=== PATIENT | male | born 1975 | race Caucasian/White ===

== ENCOUNTER 2024-07-23 10:06 | Outpatient (AMB) | payer BC, SELFPAY ==
--- NOTE | 2024-07-23 10:07 | A.OFFPC_ITS ---
Vital Signs 07/23/24 10:18 Height 5 ft 11 in Weight 136 lb BMI 19.0 BP 106/64 Blood Pressure Location Rt brachial Position Sitting Pulse 78 Pulse Source Pulse Oximeter Pulse Oximetry (%) 98 Oxygen Delivery Method Room Air Intake Visit Reasons: New pt PE Intake Note: Pt is here today for New patient visit PE. Allergies No Known Allergies Allergy (Verified 07/23/24 10:19) Medication List - Last Reconciled 07/23/24 by Sommer Acosta MD albuterol sulfate continuous nebulization albuterol sulfate 90 mcg/actuation 2 puffs inhalation Q6H PRN albuterol sulfate 0.63 mg (3 mL) inhalation Q6H Anoro Ellipta 62.5-25 mcg/actuation (umeclidinium-vilanterol) 1 inh inhalation DAILY NS varenicline (Chantix Starting Month Box) PO PER PKG DIR varenicline (Chantix Continuing Month Box) 1 mg PO BID Tobacco use date assessed: 07/23/24 Dental Screening Dental Screen Date: 07/23/24 Did you have a dental visit in the last 12 months?: No Did you have a dental problem in the last 6 months where you did not have access to dental care?: No Was dental information given to patient?: Patient declined HPI New pt PE HPI0 Details Pt presents for [employer] PE. Patient has not seen a primary care doctor for a few years. He used to take albuterol as needed for intermittent coughing and wheezing. Patient smokes 1 pack a day for over 20 years and is planning to quit. 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 1. Little interest or pleasure in doing things: not at all 2. Feeling down, depressed, or hopeless: not at all 3. Trouble falling or staying asleep, or sleeping too much: not at all 4. Feeling tired or having little energy: several days 5. Poor appetite or overeating: not at all 6. Feeling bad about yourself - or that you are a failure or have let yourself or your family down: not at all 7. Trouble concentrating on things, such as reading the newspaper or watching television: not at all 8. Moving or speaking so slowly that other people could have noticed. Or the opposite - being so fidgety or restless that you have been moving around a lot more than usual: not at all 9. Thoughts that you would be better off or of hurting yourself in some way: not at all Total score: 1 Depression Screening Interpretation: Negative Depression Screening Done: Yes 27259 - PHQ-9 Billing: Yes Source: Developed by Drs. Leo Casillas, Ruchi Cornell, Azeem Rojas and colleagues, with an educational anushka from [employer]. Thrive Questionnaire Date Thrive assessed: 07/23/24 I am a: Patient What is your living situation today?: I have a place to live, but I am worried about losing it in the future Within the past 12 months, did the food you bought not last and you didn't have the money to get more?: Never true Within the past 12 months, did you worry whether your food would run out before you got money to buy more?: Never true Do you have trouble paying for medicines?: No Do you have trouble getting transportation to medical appointments?: No Do you have trouble paying your heating and electricity bill?: No Do you have trouble taking care of your child, family member or friend?: No Do you have trouble with day-to-day activities such as bathing, preparing meals, shopping, managing finances, etc.?: No Are you currently unemployed and looking for a job?: No Are you interested in more education?: No THRIVE Score: 1 AUDIT C Alcohol Use Questionnaire (AUDIT-C) 1. How often do you have a drink containing alcohol?: Never 3. How often do you have six or more drinks on one occasion?: Never Total Score: 0 CHLOE-7 AMB Questionnaire CHLOE-7 Date CHLOE - 7 assessed: 07/23/24 Feeling nervous, anxious, or on edge: 1 = Several days Not being able to stop or control worryin = Several days Worrying too much about different things: 1 = Several days Trouble relaxin = Not at all Being so restless that it is hard to sit still: 0 = Not at all Becoming easily annoyed or irritable: 0 = Not at all Feeling afraid as if something awful might happen: 1 = Several days Total CHLOE-7 score (0-4 normal; 5-9 mild; 10-14 moderate; 15-21 severe): 4 Source: Developed by Drs. Leo Casillas, Ruchi Cornell, Azeem Rojas and colleagues, with an educational anushka from [employer]. CHLOE-7 Assessment Billing CHLOE-7 Assessment Tool: CHLOE-7 Assessment 57334 Review of Systems Const All systems reviewed & are unremarkable except as noted in HPI and below Reports no additional complaints Eyes Reports no additional complaints ENT Reports no additional complaints Card Reports no additional complaints Resp Reports no additional complaints GI Reports no additional complaints Reports no additional complaints Physical exam (Primary Care) Vital Signs: Last Vital Signs Pulse 78 07/23/24 10:18 BP 106/64 07/23/24 10:18 Pulse Ox 98 07/23/24 10:18 Oxygen Delivery Method Room Air 07/23/24 10:18 BMI result Body Mass Index 19.0 Tobacco/Smoking Status: Tobacco use Status Tobacco use date assessed 07/23/24 07/23/24 10:24 Patient Tobacco Use Status Current everyday Tobacco 07/23/24 10:24 Tobacco use type Cigarette 07/23/24 10:24 e-Cigarette/Vaping Use Never Used 07/23/24 10:24 PHQ-9: PHQ-9 Score PHQ-9: Total score 1 07/23/24 10:30 Depression Screening Interpretation: Negative Thrive Assessment: Date of Thrive Assessment Date Thrive assessed 07/23/24 07/23/24 10:30 Const General: no acute distress HENMT Head: Yes normal to inspection Face and sinus: Yes normal facial exam Mouth: Normal oral and palatal mucosa present Throat: Yes posterior oropharynx normal Eyes General: appearance normal, both eyes and all related structures Neck Neck: Yes no lymphadenopathy and Yes supple Resp Effort & Inspection: normal respiratory effort Auscultation: wheezes and diminished lung sounds Cardio Rhythm: regular rhythm Heart sounds: S1 normal heart sound present and S2 normal heart sound present GI Inspection: Yes normal to inspection Palpation (GI): Soft to palpation Percussion: Yes normal to percussion Auscultation: normal bowel sounds Coding Level of Care Code New Pt Prev Care 40-64y(41231) Diagnoses COPD (chronic obstructive pulmonary disease) J44.9 Tobacco dependence F17.200 Colon polyps K63.5 Annual physical exam Z00.00 Additional Codes CHLOE-7 Assessment Billing - CHLOE-7 Assessment Tool: CHLOE-7 Assessment 29061 ([id number]) PHQ-9 - 65029 - PHQ-9 Billing: Yes ([id number]) Assessment & Plan Assessment & Plan (1) COPD (chronic obstructive pulmonary disease): Code(s): J44.9 - Chronic obstructive pulmonary disease, unspecified Category: Medical Plan: Start Anoro Ellipta, continue albuterol p.r.n. follow-up in 6 weeks (2) Tobacco dependence: Comment: 1 ppd x 23 yrs Code(s): F17.200 - Nicotine dependence, unspecified, uncomplicated Category: Medical Plan: Tobacco quitting discussed with the patient. He will try Chantix. Patient will be referred to lung cancer screening program (3) Colon polyps: Comment: last colonoscopy at 40, needs to have a repeat KRISH Code(s): K63.5 - Polyp of colon Category: Medical Plan: Referred to GI as soon as possible patient is overdue for colonoscopy (4) Annual physical exam: Code(s): Z00.00 - Encounter for general adult medical examination without abnormal findings Category: Medical Plan: Well-balanced diet regular exercise stress management discussed with the patient. Fasting blood work will be obtained today Orders: Orders UA w Microscopic Today F17.200 - Nicotine dependence, unspecified, uncomplicated, J44.9 - Chronic obstructive pulmonary disease, unspecified, K63.5 - Polyp of colon, Z00.00 - Encounter for general adult medical examination without abnormal findings Complete Blood Count Auto Diff Today F17.200 - Nicotine dependence, unspecified, uncomplicated, J44.9 - Chronic obstructive pulmonary disease, unspecified, K63.5 - Polyp of colon, Z00.00 - Encounter for general adult medical examination without abnormal findings Comprehensive Clark. Panel Fast Today F17.200 - Nicotine dependence, unspecified, uncomplicated, J44.9 - Chronic obstructive pulmonary disease, unspecified, K63.5 - Polyp of colon, Z00.00 - Encounter for general adult medical examination without abnormal findings Lipid Panel Today F17.200 - Nicotine dependence, unspecified, uncomplicated, J44.9 - Chronic obstructive pulmonary disease, unspecified, K63.5 - Polyp of colon, Z00.00 - Encounter for general adult medical examination without abnormal findings PSA,Total (Free>4and<10) Today F17.200 - Nicotine dependence, unspecified, uncomplicated, J44.9 - Chronic obstructive pulmonary disease, unspecified, K63.5 - Polyp of colon, Z00.00 - Encounter for general adult medical examination without abnormal findings Referrals Thoracic/General Surgery Referral F17.200 - Nicotine dependence, unspecified, uncomplicated Gastroenterology Referral F17.200 - Nicotine dependence, unspecified, uncomplicated, J44.9 - Chronic obstructive pulmonary disease, unspecified, K63.5 - Polyp of colon, Z00.00 - Encounter for general adult medical examination without abnormal findings Medications: New varenicline (Chantix Starting Month Box) PO PER PKG DIR 53 ea 0RF varenicline (Chantix Continuing Month Box) 1 mg PO BID 56 tabs 1RF albuterol sulfate 90 mcg/actuation 2 puffs inhalation Q6H PRN 8.5 grams 2RF shortness of breath or wheezing albuterol sulfate 0.63 mg (3 mL) inhalation Q6H 90 mL 1RF Anoro Ellipta 62.5-25 mcg/actuation (umeclidinium-vilanterol) 1 inh inhalation DAILY 60 ea 3RF NS
[2024-07-23 10:18] VITALS: BP 106/64; PULSE 78; O2SAT 98; BMI 19.0
== END 2024-07-23 11:35 | disposition home or self-care (01) ==
PROVIDERS: Visit Provider Internal Medicine
DX: J44.9 Chronic obstructive pulmonary disease, unspecified (principal); F17.200 Nicotine dependence, unspecified, uncomplicated; K63.5 Polyp of colon; Z00.00 Encounter for general adult medical examination without abnormal findings

== ENCOUNTER 2024-07-23 10:06 | Outpatient (REF) | payer BC, SELFPAY ==
[2024-07-23 13:22] LABS: Appearance Urine Clear; Color Urine Dark Yellow; Glucose Urine UA Negative (Negative); Leukocyte Esterase Urine Trace (Negative); Nitrite Urine Negative (Negative); Specific Gravity - Urine 1.025 (1.005-1.025); UMIC TRIGGER UA YES; Urine Blood Negative (Negative); Urine Ketones Trace mg/dL (Negative); Urine Protein Trace mg/dL (Neg-Trace)
[2024-07-23 13:34] LABS: MANUAL DIFF FLAG NO
[2024-07-23 13:40] LABS: Bacteria Urine None Seen (None Seen); Hyaline Casts Urine 0-2 /LPF (0-2); RBC Urine 0-2 /HPF (0-2); Squamous Epithelial Cell Urine 0-2 /HPF (0-2); WBC Urine 0-5 /HPF (0-5)
[2024-07-23 13:51] LABS: Basophils Absolute Auto 0.1 X10*3/uL (0.0-0.2); Basophils Percent Auto 0.4 % (0-2); Eosinophils Percent Auto 0.1 % (0-4); Hematocrit 44.8 % (42.0-52.0); Imm Gran Abs Auto 0.06 X10*3/uL (0.00-0.03); Imm Gran Pct Auto 0.4 % (0.0-0.4); Lymphocytes Absolute Auto 2.6 X10*3/uL (1.2-4.9); Lymphocytes Percent Auto 16.5 % (20-40); Mean Corpuscular HGB Conc 33.5 g/dl (31.0-36.0); Mean Corpuscular Hemoglobin 31.7 pg (27.0-33.0); Mean Corpuscular Volume 94.7 fL (80.0-98.0); Mean Platelet Volume 11.3 fL (9.4-12.4); Monocytes Absolute Auto 0.6 X10*3/uL (0.1-1.2); Monocytes Percent Auto 3.8 % (2-11); Neutrophils Absolute Auto 12.5 x10*3/uL (2.0-8.3); Neutrophils Percent Auto 78.8 % (45-73); Platelet Count 288 X10*3/uL (160-400); Red Blood Count 4.73 X10*6/uL (4.60-5.80); White Blood Count 15.9 X10*3/uL (4.8-10.8)
[2024-07-23 14:25] LABS: PSA,Total (Free>4and<10) 2.62 ng/mL (0.00-4.00)
[2024-07-23 14:35] LABS: Alanine Aminotransferase 23 U/L (0-40); Albumin Level 4.5 g/dL (3.5-5.0); Alkaline Phosphatase 92 U/L (39-117); Anion Gap 10 (12-20); Aspartate Amino Transferase 24 U/L (5-37); Bilirubin Total 0.5 mg/dL (0.0-1.0); Blood Urea Nitrogen 12 mg/dL (9-16); Calcium 9.6 mg/dL (8.4-10.2); Carbon Dioxide 29 mmol/L (22-29); Chloride 106 mmol/L (96-108); Cholesterol 181 mg/dL (<200); Estimated Glomerular Filt Rate > 60; Glucose Fasting 97 mg/dL (60-99); HDL Cholesterol 44 mg/dL (>40); LDL Cholesterol Calculated 109 mg/dL (<100); Potassium 5.4 mmol/L (3.3-5.1); Sodium 140 mmol/L (135-145); Total Protein 7.2 g/dL (6.5-8.0); Triglycerides 142 mg/dL (<150)
== END 2024-07-23 10:07 | disposition home or self-care (01) ==
LOC: HO.HMGCLDS 10:06
PROVIDERS: PCP Internal Medicine; Visit Provider Internal Medicine
DX: Z00.00 Encounter for general adult medical examination without abnormal findings (principal); J44.9 Chronic obstructive pulmonary disease, unspecified; K63.5 Polyp of colon; F17.200 Nicotine dependence, unspecified, uncomplicated; Z12.5 Encounter for screening for malignant neoplasm of prostate
CPT/HCPCS: 36415; 80053; 80061; 81001; 84153; 85025; 96127

== ENCOUNTER → 2024-09-14 10:56 | Outpatient (AMB) | payer BC, SELFPAY ==
--- NOTE | 2024-09-14 08:06 | A.OFFVIS_ITS ---
Intake Visit Reasons: Current Smoker Allergies No Known Allergies Allergy (Verified 07/23/24 10:19) HPI HPI Current Smoker: Details: Initial visit for this 49yo smoker with a 23PYH. Patient started smoking at age 26 for 23 years at 1ppd. . Denies marijuana use. Denies second hand smoke exposure. 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 . Family history of lung cancer. Sister, smoker passed at 54yo. Reports personal history of cancers Right testicular cancer s/p orchiectomy and chemo in [address] in last year. . Denies recent travel outside the [place]. Denies recent respiratory illness or recent hospitalization for respiratory issues. Reports testing positive for COVID - and no sense of taste since. Denies receiving COVID Vaccine. . Denies fever, chills, new/worsening cough, hemoptysis, hoarseness or dysphagia. Denies significant chest pain, significant dyspnea or unintentional weight loss. Patient Lung Cancer Screening Questionnaire reviewed with patient by provider. . Shared Decision Making Completed. Patient meets criteria. Discussed in detail with patient, the risk vs benefit of LDCT screening. Patient consents to proceed with scan. Discussed smoking cessation. [facility] Medical History (Updated 09/14/24 @ 11:15 by Arti Spear PA-C) History of testicular cancer Colon polyps FHx: colon cancer Nicotine dependence, cigarettes, uncomplicated Surgical History (Updated 09/14/24 @ 11:05 by Arti Spear PA-C) History of total adrenalectomy History of orchiectomy, unilateral History of colonoscopy History of hernia surgery Family History (Updated 07/23/24 @ 10:47 by Sommer Acosta MD) Father Colon cancer Substance use disorder Mother Colon cancer Ovarian ca, Onset Age: 73 Sister Substance use disorder Lung cancer Brother Substance use disorder Social History (Updated 09/14/24 @ 11:15 by Arti Spear PA-C) Household Members Other:: 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 partner, 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 Housing: Apartment Patient Tobacco Use Status: Current everyday Tobacco user Tobacco use type: Cigarette Cigarette Packs Per Day: 1 Cigarettes Per Day: 20 Years Smoked: (onset 26yo, 1ppd x 23yrs, 23pyh) e-Cigarette/Vaping Use: Never Used service: No Current occupational status: employed Cognitive needs: No Hearing needs: No Vision needs: Yes Assessment & Plan Assessment & Plan (1) Nicotine dependence, cigarettes, uncomplicated: Comment: (onset 26yo, 1ppd x 23yrs, 23pyh, +fam hx lung ca - sister) Code(s): F17.210 - Nicotine dependence, cigarettes, uncomplicated Category: Medical Plan: - SDM visit completed today in office. - Patient meets criteria for LDCT for lung cancer screening purposes and is asymptomatic. - Smoking cessation counseling offered. Patients can always call [phone]. - Will arrange for a LDCT scan of the chest for screening purposes at [facility]. - Risks, benefits, and alternatives were discussed in detail and the patient agrees to proceed. - Risks discussed include but are not limited to: radiation exposure, anxiety during testing and while awaiting results, false negatives, false positives and possibility of additional intervention such as further imaging or surgical procedures for benign disease. - Benefits are obviously detection of lung cancer at an early stage which can lead to improved outcomes. - Discussed the importance of screening program compliance with adherence to yearly LDCT scan as scheduled - or sooner interval scans for personalized screening regimen. - Discussed follow up plan. Our office will send a letter discussing results and if needed set up phone call and office visit based on CT findings. - Patient educated on results categorization and the management decisions for suspicious findings potentially found on the screening LDCT scan. Any patient with a Lung RADS score of 3 or 4 will be reviewed by a multidisciplinary team at [facility] to form a plan of action in regards to scan findings. - If further work up is warranted for a suspicious lung finding this will be followed by the Lung Cancer Screening program in conjunction with the Thoracic Surgery Department at [facility]. - A copy of the office note and LDCT will be sent to the patient's PCP - as well as documentation on any associated further plans of care. - Incidental findings on LDCT are the PCP's responsibility. These findings are indicated with an S finding on the LDCT Assessment. A note discussing the findings will be sent to the PCP who is then responsible for further management. - All questions answered.? Coding Level of Care Code Lung Cancer Screening G0296 Diagnoses Nicotine dependence, cigarettes, uncomplicated F17.210
== END | disposition home or self-care (01) ==
PROVIDERS: PCP Internal Medicine; Visit Provider Physician Assistant Medical
CPT/HCPCS: G0296

== ENCOUNTER 2024-09-14 11:11 | Outpatient (REF) | payer BC, SELFPAY | END 2024-09-14 11:12 | disposition home or self-care (01) | LOC: HO.CT 11:11 | PROVIDERS: PCP Internal Medicine; Visit Provider Physician Assistant Medical | DX: Z12.2 Encounter for screening for malignant neoplasm of respiratory organs (principal); F17.210 Nicotine dependence, cigarettes, uncomplicated ==

== ENCOUNTER → 2024-09-14 11:12 | Outpatient (BNV) | payer BC, SELFPAY | PROVIDERS: PCP Internal Medicine; Visit Provider Specialist | DX: F17.210 Nicotine dependence, cigarettes, uncomplicated (principal) | CPT/HCPCS: 71271 ==

== ENCOUNTER 2024-11-29 15:49 | Outpatient (AMB) | payer BC, SELFPAY ==
--- NOTE | 2024-11-29 15:52 | A.OFFVIS_ITS ---
Vital Signs 11/29/24 15:55 Height 5 ft 11 in Weight 134 lb 7.712 oz BMI 18.8 BP 113/70 Blood Pressure Location Lt brachial Position Sitting Pulse 61 Pulse Source Pulse Oximeter Pulse Oximetry (%) 97 Oxygen Delivery Method Room Air Intake Visit Reasons: copd Intake Note: pt is here as a new patient for copd, and pulmonary on board, he does having dry hacky cough in am, post nasal drip, pt would like a nebulizer, his is very old. 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 He does have history of cough especially in the morning and mild shortness of breath on exertion, since more than 10 years ago. He was initially being followed by molding and trim installer at [facility], and now he wants to be followed up over here. He has history of smoking 1 pack of cigarettes a day since age 14. He has try to cut down or quit intermittently, but then goes back to smoking. He was found to have mild degree of obstructive airway disorder back in 2013 when he had pulmonary function test at [facility]. 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 For treatment he has been mainly on albuterol inhaler 2 puffs Q 6 hours p.r.n. when outdoors and albuterol solution in the nebulizer Q 6 hours p.r.n. when at home. Recently prescribed Anoro Ellipta. But it was not covered by insurance and the cost was prohibitive. He is looking for a brand that is affordable. His main complaint is the dry cough in the morning hours without much expectoration. During rest of the day he is short of breath if he has to walk fast or climbs stairs, but he can do his work at normal pace at ground level without extra shortness of breath. Recently has been registered in annual lung screening program , and the results were benign, category 2. He has past history of testicular cancer, treated by orchiectomy and followed by adjuvant chemotherapy more than 15-20 years ago. [facility] Medical History (Updated 11/29/24 @ 16:43 by Rachelle Siu MD) History of testicular cancer Colon polyps FHx: colon cancer Nicotine dependence, cigarettes, uncomplicated Surgical History (Updated 09/14/24 @ 11:05 by Arti Spear PA-C) History of total adrenalectomy History of orchiectomy, unilateral History of colonoscopy History of hernia surgery Family History (Updated 07/23/24 @ 10:47 by Sommer Acosta MD) Father Colon cancer Substance use disorder Mother Colon cancer Ovarian ca, Onset Age: 73 Sister Substance use disorder Lung cancer Brother Substance use disorder Social History Household Members Other:: lives with partner, 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 Housing: Apartment Patient Tobacco Use Status: Current everyday Tobacco user Tobacco use type: Cigarette Cigarette Packs Per Day: 1 Cigarettes Per Day: 20 Years Smoked: (onset 26yo, 1ppd x 23yrs, 23pyh) e-Cigarette/Vaping Use: Never Used service: No Current occupational status: employed Cognitive needs: No Hearing needs: No Vision needs: Yes Review of Systems Const All systems reviewed & are unremarkable except as noted in HPI and below Eyes Reports no additional complaints ENT Reports no additional complaints and Reports nasal congestion (Mild intermittent) Card Denies chest pain, Denies syncope and Denies irregular heart rhythm Resp Reports as per HPI GI Reports no additional complaints Reports no additional complaints Musc Reports no additional complaints Skin/Breast Reports system reviewed and no additional complaints, except as documented Neuro Reports no additional complaints and Denies syncope Psych Reports no additional complaints Physical Exam Vital Signs: Last Vital Signs Pulse 61 11/29/24 15:55 BP 113/70 11/29/24 15:55 Pulse Ox 97 11/29/24 15:55 Oxygen Delivery Method Room Air 11/29/24 15:55 BMI result Body Mass Index 18.8 Const General: healthy appearing (Of a thin build), comfortable, no acute distress, alert and awake Orientation/consciousness: patient oriented x3 HEENT Head: Yes normal to inspection General nose exam: No nasal polyps present and No nasal discharge present Face and sinus: Yes sinuses nontender Mouth: oropharynx normal Throat: Yes posterior oropharynx normal Eyes General: appearance normal, both eyes and all related structures Neck Neck: Yes normal visual inspection, Yes no lymphadenopathy, Yes trachea midline and Yes no JVD Thyroid: Thyroid normal Chest Chest palpation & inspection: normal inspection of the chest, normal palpation of entire chest wall and no tenderness Resp Other: Percussion note is somewhat hyper-resonant. Breath sounds are distant with prolonged expiratory phase. No active wheezes crepitations or rhonchi are heard . Cardio Palpation: normal PMI Rate: regular rate Rhythm: regular rhythm Heart sounds: no gallops and no murmurs Peripheral pulses: Peripheral pulses 2+ throughout GI Palpation (GI): Soft to palpation, nontender, No hepatosplenomegaly present and no masses Auscultation: normal bowel sounds Back/Spine/Pelvis Thoracic/Lumbar Spine: thoracic and lumbar spine normal to inspection Skin General skin exam: no rashes or lesions noted Neuro General: patient oriented x3 and no focal motor deficits Cranial nerves: Yes CN's II-XII intact bilaterally Extrem General: Yes normal to inspection, Yes no clubbing, cyanosis or edema and Yes no calf tenderness Psych Appearance: grossly normal and well kempt Speech and movement: Normal speech and movement present Results Reviewed Results Reviewed: 09/15/2024 LDCT Lung: There are no solid or semi solid lesions. There is right lower lobe scarring. Coronary artery calcifications: Moderate Limited upper abdomen: Unremarkable Other: None Impression: Category 2: Benign appearance Assessment & Plan Assessment & Plan (1) COPD (chronic obstructive pulmonary disease): Comment: This gentleman has history of COPD since more than 10 years ago. Symptomatically he has been relatively stable, Main symptom being morning cough and then dyspnea on moderately severe exertion Code(s): J44.9 - Chronic obstructive pulmonary disease, unspecified Category: Medical Plan: Treatment plan: Will order Wixela 250-50 1 inhalation b.i.d. or an equivalent agent which is covered by his insurance Albuterol solution 0 point 6 3 mg per 3 male Q 6 hours prn in the nebulizer Alternatively albuterol HFA 2 puffs Q 6 hours p.r.n. for dyspnea or wheezing. PULMONARY FUNCTION TEST IS ORDERED CURRENT BASELINE (2) Nicotine dependence, cigarettes, uncomplicated: Comment: (onset 26yo, 1ppd x 23yrs, 23pyh, +fam hx lung ca - sister) currently smoking about 1 pack of cigarettes a day. Code(s): F17.210 - Nicotine dependence, cigarettes, uncomplicated Category: Medical Plan: Discussed with him in detail. Advise that he needs to quit smoking. He does not need to use any Chantix or nicotine products at this time. He will try his best to gradually decrease the number of cigarettes. Orders: Orders PFT pulmonary function test Today F17.210 - Nicotine dependence, cigarettes, uncomplicated, J44.9 - Chronic obstructive pulmonary disease, unspecified Medications: New albuterol sulfate 0.63 mg (3 mL) inhalation Q4-6H PRN 180 mL 3RF shortness of breath or wheezing 30 days albuterol sulfate 90 mcg/actuation 2 puffs inhalation Q4-6H PRN 8.5 grams 3RF shortness of breath or wheezing 30 days fluticasone propion-salmeterol 250-50 mcg/dose 1 inh inhalation BID 60 ea 5RF copd 30 days Coding Level of Care Code New Pt Level 4 (14356) Diagnoses COPD (chronic obstructive pulmonary disease) J44.9 Nicotine dependence, cigarettes, uncomplicated F17.210
[2024-11-29 15:55] VITALS: BP 113/70; PULSE 61; O2SAT 97; BMI 18.8
--- OUTSIDE RECORDS SUMMARY | 2024-11-29 18:23 | XMS_ITS | Clinical Summary ---
Author Organization Christina LOOKCAST [facility] Address [address] [place] [address] Care Team Providers Care Smoking Pipes Cleaner Name Role Phone Ani Peraza MD Primary Care Provider [phone] Surgical History Surgery Date Site/Laterality Comments OTHER SURGICAL HISTORY 1997 Left PROCEDURE: HISTORY OTHER; COMMENT: scrotal varicocele OTHER SURGICAL HISTORY 2006 Right PROCEDURE: MD LAPAROSCOPY SURGICAL ORCHIECTOMY; COMMENT: testicular cancer COLONOSCOPY 2012 PROCEDURE: HISTORICAL COLONOSCOPY; COMMENT: polyps removed, ? precancerous, no further information HERNIA REPAIR 07/2015 Left PROCEDURE: HISTORICAL HERNIA REPAIR/ING Medical History Medical History Date Comments Anxiety 05/14/2019 DX:Anxiety Asthma, mild intermittent 05/14/2019 DX:Ast hma, mild intermittent Body mass index (BMI) less t claros 19 in adult 05/14/2019 DX:Body mass index (BMI) les s than 19 in adult Colon polyps 05/14/2019 DX:Colon polyps; COMMENT: 2012 polyps removed, ? precancerous History of testicular cancer 05/14/2019 DX: History of testicular cancer; COMMENT: 2006 right ochiectomy Tobacco use 05/14/2019 DX:Tobacco use Family History Medical History Relation Name Comments Other cancer Father Other cancer Mother Other cancer Sister Relation Name Status Comments Father Mother Sister Social History Tobacco Use Types Packs/Day Years Used Date Smoking Tobacco: Every Day Smokeless Tobacco: Never Alcohol Use Standard Drinks/Week Comments No 0 (1 standard drink = 0.6 oz pur e alcohol) Sex and Gender Information Value Date Recorded Sex Assigned at Not on file Legal Sex Male 10:00 AM EST Gender Identity Not on file Sexual Orientation Not on file Obstetrics History Last Filed Vital Signs Vital Sign Reading Time Taken Comments Blood Pressure - - Pulse - - Temperature - - Respiratory Rate - - Oxygen Saturation - - Inhaled Oxygen Concentration - - Weight 59.9 kg (132 lb) 11/09/2022 3:37 PM EDT Height 182.9 cm (6') 11/09/2022 3:37 PM EDT Body Mass Index 17.9 11/09/2022 3:37 PM EDT Plan of Treatment Health Maintenance Due Date Last Done Comments DTaP,Tdap,and Td Vaccines (1 - Tdap) 01/29/1992 Hepatitis B Vaccines (1 of 3 - 19+ 3-dose series) 01/29/1992 Pneumococcal Vaccine: 50+ Ye ars (1 of 2 - PCV) 01/29/1992 Pneumococcal Vaccine: Pediat rics (0 to 5 Years) and At-Risk Patients (6 to 64 Years) (1 of 2 - PCV) 01/29/1992 Cholesterol Screening (Lipid Panel) 07/11/2022 Colorectal Cancer Screening: Colonoscopy 07/11/2022 Depression Screening 07/11/2022 HIV Screening 07/11/2022 Hepatitis C Screening 07/11/2022 Social Influencers of Health Screening 07/11/2022 Zoster Vaccines (1 of 2) 2023 COVID-19 Vaccine ( - 2023-2 5 season) 2024 Influenza Vaccine (Season Ended) 2025 HIB Vaccines Aged Out No longer eligi ble based on patient's age to complete this topic HPV Vaccines Aged Out No longer eligi ble based on patient's age to complete this topic Hepatitis A Vaccines Aged Out No long er eligible based on patient's age to complete this topic IPV Vaccines Aged Out No longer eligi ble based on patient's age to complete this topic MMR Vaccines Aged Out No longer eligi ble based on patient's age to complete this topic Meningococcal ACWY Vaccine Aged Out N o longer eligible based on patient's age to complete this topic Meningococcal B Vaccine Aged Out No l onger eligible based on patient's age to complete this topic RSV Immunization Patients Un stanley 20 months Aged Out No longer eligible b ased on patient's age to complete this topic Varicella Vaccines Aged Out No longer eligible based on patient's age to complete this topic Care Teams Smoking Pipes Cleaner Relationship Specialty Start Date End Date Ani Peraza MD [address] [place] [phone] [facility] - General 11/05/22
--- OUTSIDE RECORDS SUMMARY | 2024-11-29 18:23 | XMS_ITS | Clinical Summary ---
Author Organization [facility] Address [address] [place] [address] Care Team Providers Care Alliance Consultant Name Role Phone Bird Simpson MD Primary Care Provider [phone] Allergies No known active allergies Medications No known medications Active Problems Problem Noted Date Diagnosed Date History of abdominal hernia 09/21/2019 COPD (chronic obstructive pulmonary disease) Social History Tobacco Use Types Packs/Day Years Used Date Smoking Tobacco: Never Assessed Sex and Gender Information Value Date Recorded Sex Assigned at Not on file Gender Identity Not on file Sexual Orientation Not on file Last Filed Vital Signs Vital Sign Reading Time Taken Comments Blood Pressure 120/80 09/21/2019 2:55 PM EST Pulse 53 09/21/2019 2:55 PM EST Temperature - - Respiratory Rate - - Oxygen Saturation 99% 09/21/2019 2:55 PM EST Inhaled Oxygen Concentration - - Weight 60.1 kg (132 lb 6.4 oz) 09/21/2019 2:55 P M EST Height 182.5 cm (5' 11.85 ) 09/21/2019 2:[address] Body Mass Index 18.03 09/21/2019 2:55 PM EST Plan of Treatment Health Maintenance Due Date Last Done Comments Hepatitis B Vaccines (1 of 3 - 3-dose series) 1973 Hepatitis C Screening 1973 COVID-19 Vaccine (#1) 1973 Pneumococcal Vaccine (1 of 2 - PCV) 1979 Depression Screening 1985 Preventative Health Evaluation 1991 DTap / Tdap / Td (1 - Tdap) 01/29/1992 Colon Cancer Screening (Colonoscopy) 2018 Shingrix-Zoster Vaccine (1 of 2) 2023 Influenza Vaccine (#1) 2024 RSV Ped < 20 months Aged Out No longe r eligible based on patient's age to complete this topic Care Teams Alliance Consultant Relationship Specialty Start Date End Date Bird Simpson MD PCP - General Internal Medicine 09/21/19
== END 2024-11-29 16:21 | disposition home or self-care (01) ==
LOC: HO.HPS 15:49
PROVIDERS: PCP Internal Medicine; Referring Provider Internal Medicine; Visit Provider Internal Medicine
DX: J44.9 Chronic obstructive pulmonary disease, unspecified (principal); F17.210 Nicotine dependence, cigarettes, uncomplicated
CPT/HCPCS: 99204

== ENCOUNTER → 2024-11-29 15:49 | Outpatient (BNVA) | payer BC, SELFPAY | PROVIDERS: PCP Internal Medicine; Referring Provider Internal Medicine; Visit Provider Internal Medicine ==

== ENCOUNTER 2025-01-16 15:57 | Outpatient (REF) | payer BC, SELFPAY ==
--- NOTE | 2025-01-16 16:06 | PFT_ITS ---
Flows: FEV1: 89 % of predicted at 3.55 L FVC: 122 % of predicted at 6.20 L FEV1/FVC: 57 % Bronchodilator response: Absent Volumes: Total lung capacity: 114 % of predicted at 8.50 L Residual volume: 115 % of predicted at 2.30 L Slow vital capacity: 113 % of predicted at 6.20 L Expiratory reserve volume: 114 % of predicted at 1.72 L Diffusion capacity: Moderately decreased. Impression: Mild obstructive ventilatory defect with no bronchodilator response. Decreased diffusion capacity suggests emphysema. MTDD
[2025-01-16 16:47] VITALS: PULSE 59
--- OUTSIDE RECORDS SUMMARY | 2025-01-16 18:09 | XMS_ITS | Clinical Summary ---
Author Organization Christina [facility]oo [facility] Address [address] [place] [address] Care Team Providers Care Chief Credit Officer Name Role Phone Ani Peraza MD Primary Care Provider [phone] Surgical History Surgery Date Site/Laterality Comments OTHER SURGICAL HISTORY 1997 Left PROCEDURE: HISTORY OTHER; COMMENT: scrotal varicocele OTHER SURGICAL HISTORY 2006 Right PROCEDURE: [place] LAPAROSCOPY SURGICAL ORCHIECTOMY; COMMENT: testicular cancer COLONOSCOPY [...] age to complete this topic Care Teams Chief Credit Officer Relationship Specialty Start Date End Date Ani Peraza MD [address] [place] [phone] [facility] - General 11/05/22
== END 2025-01-16 15:58 | disposition home or self-care (01) ==
LOC: HO.RESP 15:57
PROVIDERS: PCP Internal Medicine; Visit Provider Internal Medicine
DX: J44.9 Chronic obstructive pulmonary disease, unspecified (principal); F17.210 Nicotine dependence, cigarettes, uncomplicated
CPT/HCPCS: 94010; 94640; 94727; 94729

== ENCOUNTER → 2025-01-16 16:06 | Outpatient (BNV) | payer BC, SELFPAY | PROVIDERS: PCP Internal Medicine; Visit Provider Internal Medicine Pulmonary Disease | DX: J44.9 Chronic obstructive pulmonary disease, unspecified (principal) | CPT/HCPCS: 94060; 94727; 94729 ==

== ENCOUNTER 2025-01-28 15:40 | Outpatient (AMB) | payer BC, SELFPAY ==
[2025-01-28 15:45] VITALS: BP 110/60; PULSE 70; O2SAT 98; BMI 18.6
--- NOTE | 2025-01-28 15:45 | A.OFFVIS_ITS ---
Vital Signs 01/28/25 15:45 Height 5 ft 11 in Weight 133 lb 6.075 oz BMI 18.6 BP 110/60 Blood Pressure Location Lt brachial Position Sitting Pulse 70 Pulse Source Pulse Oximeter Pulse Oximetry (%) 98 Oxygen Delivery Method Room Air Intake Visit Reasons: COPD Intake Note: pt is here for follow up pft, heat is affecting his breathing Cissp Required: No Allergies No Known Allergies Allergy (Verified 01/28/25 16:05) Medication List - Last Reconciled 01/28/25 by Rachelle Siu MD albuterol sulfate 0.63 mg (3 mL) inhalation Q4-6H PRN 30 days albuterol sulfate 90 mcg/actuation 2 puffs inhalation Q6H PRN albuterol sulfate 0.63 mg (3 mL) inhalation Q6H fluticasone propion-salmeterol 250-50 mcg/dose 1 inh inhalation BID 30 days Do you need a note to return to daycare/school/sports/work: No HPI HPI COPD: Details: 50 YEARS OLD GENTLEMAN A SMOKER, 20 CIGARETTES A DAY, WORKS IN [employer], EXPOSED TO GASOLINE SMELL AND FUMES , IS HERE FOR FOLLOW-UP, AFTER PULMONARY FUNCTION TEST. 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 MOSTLY AT HOME RESTING HE IS OKAY. HE IS USING WIXELA 250-51 INHALATION B.I.D. AND ALBUTEROL SOLUTION OR THE HFA P.R.N.. 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 Housing: Apartment Patient Tobacco Use Status: Current everyday Tobacco user Tobacco use type: Cigarette Cigarette Packs Per Day: 1 Cigarettes Per Day: 20 Years Smoked: (onset 26yo, 1ppd x 23yrs, 23pyh) e-Cigarette/Vaping Use: Never Used service: No Current occupational status: employed Cognitive needs: No Hearing needs: No Vision needs: Yes Review of Systems Const All systems reviewed & are unremarkable except as noted in HPI and below Eyes Reports no additional complaints ENT Reports no additional complaints and Reports nasal congestion (Mild intermittent) Card Denies chest pain, Denies syncope and Denies irregular heart rhythm Resp Reports as per HPI GI Reports no additional complaints Reports no additional complaints Musc Reports no additional complaints Skin/Breast Reports system reviewed and no additional complaints, except as documented Neuro Reports no additional complaints and Denies syncope Psych Reports no additional complaints Physical Exam Vital Signs: Last Vital Signs Pulse 70 01/28/25 15:45 BP 110/60 01/28/25 15:45 Pulse Ox 98 01/28/25 15:45 Oxygen Delivery Method Room Air 01/28/25 15:45 BMI result Body Mass Index 18.6 Const General: healthy appearing (Of a thin build), comfortable, no acute distress, alert and awake Orientation/consciousness: patient oriented x3 HEENT Head: Yes normal to inspection General nose exam: No nasal polyps present and No nasal discharge present Face and sinus: Yes sinuses nontender Mouth: oropharynx normal Throat: Yes posterior oropharynx normal Eyes General: appearance normal, both eyes and all related structures Neck Neck: Yes normal visual inspection, Yes no lymphadenopathy, Yes trachea midline and Yes no JVD Thyroid: Thyroid normal Chest Chest palpation & inspection: normal inspection of the chest, normal palpation of entire chest wall and no tenderness Resp Other: Percussion note is somewhat hyper-resonant. Breath sounds are distant with prolonged expiratory phase. No active wheezes crepitations or rhonchi are heard . Cardio Palpation: normal PMI Rate: regular rate Rhythm: regular rhythm Heart sounds: no gallops and no murmurs Peripheral pulses: Peripheral pulses 2+ throughout GI Palpation (GI): Soft to palpation, nontender, No hepatosplenomegaly present and no masses Auscultation: normal bowel sounds Back/Spine/Pelvis Thoracic/Lumbar Spine: thoracic and lumbar spine normal to inspection Skin General skin exam: no rashes or lesions noted Neuro General: patient oriented x3 and no focal motor deficits Cranial nerves: Yes CN's II-XII intact bilaterally Extrem General: Yes normal to inspection, Yes no clubbing, cyanosis or edema and Yes no calf tenderness Psych Appearance: grossly normal and well kempt Speech and movement: Normal speech and movement present Results Reviewed Results Reviewed: LDCT OF THE CHEST NORMAL, NO PULMONARY NODULES . PULMONARY FUNCTION TEST MILD OBSTRUCTIVE AIRWAY DISORDER Assessment & Plan Assessment & Plan (1) COPD (chronic obstructive pulmonary disease): Comment: This gentleman has history of COPD since more than 10 years ago. Symptomatically he has been relatively stable, Main symptom being morning cough and then dyspnea on moderately severe exertion Current pulmonary function test is consistent with mild to moderate obstructive airway disorder. Code(s): J44.9 - Chronic obstructive pulmonary disease, unspecified Category: Medical Plan: Explained to the patient. Continue fluticasone-salmeterol 250-51 inhalation b.i.d.. Continue to use albuterol HFA 2 puffs Q 6 hours p.r.n. when outdoors. And at home can use albuterol solution 0.63 mg per 3 male Q 4-6 hours p.r.n. (2) Nicotine dependence, cigarettes, uncomplicated: Comment: (onset 26yo, 1ppd x 23yrs, 23pyh, +fam hx lung ca - sister) currently smoking about 1 pack of cigarettes a day. LDCT , no significant pulmonary nodules noted. Code(s): F17.210 - Nicotine dependence, cigarettes, uncomplicated Category: Medical Plan: Advised to continue having LDCT yearly. Counseled to quit smoking and start cutting down the number of cigarettes. Coding Level of Care Code Est Pt Level 3 (47864) Diagnoses COPD (chronic obstructive pulmonary disease) J44.9 Nicotine dependence, cigarettes, uncomplicated F17.210
--- OUTSIDE RECORDS SUMMARY | 2025-01-28 17:08 | XMS_ITS | Clinical Summary ---
Author Organization [facility] Address [address] [place] [address] Care Team Providers Care Salon Leader Name Role Phone Bird Simpson MD Primary Care Provider [phone] Allergies No known active allergies Medications No [...] Vaccine (1 of 2) 2023 Influenza Vaccine (Season Ended) 2025 RSV Ped < 20 months Aged Out No longe r eligible based on patient's age to complete this topic Care Teams Salon Leader Relationship Specialty Start Date End Date Bird Simpson MD PCP - General Internal Medicine 09/21/19
== END 2025-01-28 16:05 | disposition home or self-care (01) ==
LOC: HO.HPS 15:41
PROVIDERS: PCP Internal Medicine; Visit Provider Internal Medicine
DX: J44.9 Chronic obstructive pulmonary disease, unspecified (principal); F17.210 Nicotine dependence, cigarettes, uncomplicated
CPT/HCPCS: 99213

== ENCOUNTER 2025-02-06 14:23 | Outpatient (AMB) | payer BC, SELFPAY ==
--- NOTE | 2025-02-06 14:27 | A.OFFVIS_ITS ---
Vital Signs 02/06/25 14:30 Height 5 ft 11 in Weight 131 lb BMI 18.3 BP 134/82 Blood Pressure Location Rt brachial Position Sitting Pulse 58 Pulse Source Pulse Oximeter Pulse Oximetry (%) 99 Oxygen Delivery Method Room Air Intake Visit Reasons: colo screening Intake Note: New pt for recall colo screening. Last at age 40? FMHx + CRC CC; Pt denies any GI sx or concerns at this time. Synthetic Staple Extruder Required: No Accompanied by: Family/Other Allergies No Known Allergies Allergy (Verified 02/06/25 14:27) HPI HPI colo screening: Details: 50 year old? male with past medical history of COPD, history of testicular cancer in 2006 is here today for pre colonoscopy screening.? Patient was sent to us by his PCP.? Last colonoscopy about 10 years ago. Patient was told that he had polyps. Patient's father of colorectal cancer at age 66. Patient's mom was diagnosed with colorectal cancer in 2006, survived. Patient's nephew diagnosed in his 20s with precancerous polyps.? Denies history of difficulty with sedation or anesthesia in the past.? However patient reports that when he had his last colonoscopy during the procedure he had body tremors. He was given more anaesthesia thinking that he was coming out of anesthesia, patient had a hard time waking up after the procedure. Negative for history of sleep apnea.? Denies any history of cardiac, renal, pulmonary, or hepatic disease.?? No hi story of infectious diseases like hepatitis A, B, C, HIV or tuberculosis.? 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 Housing: Apartment Patient Tobacco Use Status: Current everyday Tobacco user Tobacco use type: Cigarette Cigarette Packs Per Day: 1 Cigarettes Per Day: 20 Years Smoked: (onset 26yo, 1ppd x 23yrs, 23pyh) e-Cigarette/Vaping Use: Never Used service: No Current occupational status: employed Cognitive needs: No Hearing needs: No Vision needs: Yes Review of Systems Const Denies weight gain and Denies weight loss ENT Reports no additional complaints, Denies dysphagia and Denies odynophagia Card Reports no additional complaints Resp Reports no additional complaints GI Denies abdominal pain, Denies belching, Denies melena, Denies bloating, Denies change in bowel habits, Denies dysphagia, Denies excessive flatus, Denies dyspepsia, Denies heartburn, Denies diarrhea, Denies loose stools, Denies nausea, Denies odynophagia and Denies vomiting Reports no additional complaints Musc Reports no additional complaints Neuro Reports no additional complaints Psych Reports no additional complaints Endo Reports no additional complaints Physical Exam Vital Signs: Last Vital Signs Pulse 58 02/06/25 14:30 BP 134/82 02/06/25 14:30 Pulse Ox 99 02/06/25 14:30 Oxygen Delivery Method Room Air 02/06/25 14:30 BMI result Body Mass Index 18.3 Const General: healthy appearing, no acute distress and well developed Nutritional Appearance: well nourished Orientation/consciousness: patient oriented x3 Resp Effort & Inspection: normal respiratory effort, able to speak in complete sentences, no tracheal deviation and symmetric chest movement Auscultation: clear to auscultation bilaterally Cardio Rate: regular rate GI Inspection: Yes normal to inspection and No distended Palpation (GI): Soft to palpation, not firm, nontender and No hepatosplenomegaly present Auscultation: normal bowel sounds General: Yes no CVA tenderness Back/Spine/Pelvis Back: no CVA tenderness Skin General skin exam: elasticity normal, turgor normal and dry skin Neuro General: patient oriented x3 Psych Appearance: grossly normal Mental Status: mental status grossly normal Assessment & Plan Assessment & Plan (1) Colon polyps: Code(s): K63.5 - Polyp of colon Category: Medical Qualifiers: Colon polyp type: unspecified Colon location: unspecified part of colon Qualified Code(s): K63.5 - Polyp of colon (2) Screen for colon cancer: Code(s): Z12.11 - Encounter for screening for malignant neoplasm of colon (3) FHx: colon cancer: Code(s): Z80.0 - Family history of malignant neoplasm of digestive organs Category: Medical Plan Patient denies any GI, cardiac or respiratory symptoms.? ? Denies any history of sleep apnea.? No history infectious diseases in the past or present.? Not on any anticoagulation therapy.? Family history of CRC.? Patient denies melena, hematochezia, unintentional weight loss or ribbon like stools.? Discussed at length the pre-procedure,? prep, diet & medications as well as what to expect prior, during and after the procedure.?? Stressed the importance of good bowel prep.? Recommended the use of Vaseline or Calmoseptine OTC & baby wipes with bowel movements to promote comfort.? ?Patient verbalizes understanding and agrees to plan of care.? He was given the opportunity to ask questions and all questions answered.? We will see him after the procedure.? Medications: New polyethylene glycol 3350 (Miralax) As directed by gastro[facility]ology department at [facility] 238 grams PO ONCE 238 grams 0RF Z12.11 - Encounter for screening for malignant neoplasm of colon bisacodyl (Dulcolax (bisacodyl)) take 4 tabs at noon the day before your colonoscopy 20 mg (4 x 5 mg) PO ONCE 4 tabs 0RF constipation 1 day Z12.11 - Encounter for screening for malignant neoplasm of colon Coding Level of Care Code New Pt Level 3 (58043) Diagnoses Polyp of colon, unspecified part of colon, unspecified type K63.5 Colon polyp type: unspecified Colon location: unspecified part of colon Screen for colon cancer Z12.11 FHx: colon cancer Z80.0 Time Spent (min) 40 Comment 30 minutes spent with patient and additional 10 minutes spent reviewing his records
[2025-02-06 14:30] VITALS: BP 134/82; PULSE 58; O2SAT 99; BMI 18.3
--- OUTSIDE RECORDS SUMMARY | 2025-02-06 14:55 | XMS_ITS | Clinical Summary ---
Author Organization [facility] Address [address] [place] [address] Care Team Providers Care Power Electronics Engineer Name Role Phone Ani Peraza MD Primary Care Provider [phone] Surgical History Surgery Date Site/Laterality Comments OTHER SURGICAL HISTORY 1997 Left PROCEDURE: HISTORY OTHER; COMMENT: scrotal varicocele OTHER SURGICAL HISTORY 2006 Right PROCEDURE: [place] LAPAROSCOPY SURGICAL ORCHIECTOMY; COMMENT: testicular cancer COLONOSCOPY [...] age to complete this topic Care Teams Power Electronics Engineer Relationship Specialty Start Date End Date Ani Peraza MD [address] [place] [phone] [facility] - General 11/05/22
--- OUTSIDE RECORDS SUMMARY | 2025-02-06 14:55 | XMS_ITS | Clinical Summary ---
Author Organization [facility] Address [address] [place] [address] Care Team Providers Care Yard Jockey Name Role Phone Bird Simpson MD Primary Care Provider [phone] Allergies No known active allergies Medications No [...] age to complete this topic Care Teams Yard Jockey Relationship Specialty Start Date End Date Bird Simpson MD PCP - General Internal Medicine 09/21/19
== END 2025-02-06 15:27 | disposition home or self-care (01) ==
PROVIDERS: PCP Internal Medicine; Visit Provider Nurse Practitioner Family
DX: Z01.818 Encounter for other preprocedural examination (principal); Z12.11 Encounter for screening for malignant neoplasm of colon; Z80.0 Family history of malignant neoplasm of digestive organs; K63.5 Polyp of colon
CPT/HCPCS: S0285